=== PATIENT | male | born 1955 | race Caucasian/White ===

== ENCOUNTER 2023-08-05 15:20 | Emergency (ER) | payer MEDICARE ==
[2023-08-05 15:33] VITALS: RESP 20; TEMP 97.9
--- NOTE | 2023-08-05 15:34 | ERPHSYRPT ---
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 It is swollen and does not hurt anymore but it is swelling." Triage Nursing Assessment: Pt presented alert and oriented X 3, skin pwd. Pt left eyebrow swollen with swelling to left eyelid and tissue around lateral left eye. Physician History: This is a 67-year-old white male patient who is allergic to hornets and was working at home and unroofed a [employer] nest. He got bites to the area around his left eye. His eye was red and swollen nearly shut. However, the redness and swelling has improved. He did not use any medication to intervene. He has no shortness of breath. Timing/Duration: today Location: left eye Severity: mild Apparent Injury: no Associated Symptoms: redness (Left eye periorbital left side), eyelid swelling Visual Assistive Devices: Glasses Allergies/Adverse Reactions: hornet venom Allergy (Severe, Verified 08/05/23 15:33) Swelling Penicillins Allergy (Severe, Verified 08/05/23 15:33) Swelling Hx Tetanus, Diphtheria Vaccination/Date Given: No Hx Influenza Vaccination/Date Given: No Hx Pneumococcal Vaccination/Date Given: No Immunizations Up to Date: No Travel Risk - International Travel Have you traveled outside of the country in past 3 weeks: No - Emerging Infectious Disease Are you exhibiting symptoms associated with any current EIDs: No - Review of Systems Constitutional: No Symptoms Eyes: Other (Left periorbital redness and swelling. No direct eye globe injury redness or pain) Ears, Nose, & Throat: No Symptoms Respiratory: No Symptoms Cardiac: No Symptoms Abdominal/Gastrointestinal: No Symptoms Genitourinary Symptoms: No Symptoms Musculoskeletal: No Symptoms Skin: No Symptoms Neurological: No Symptoms Psychological: No Symptoms Endocrine: No Symptoms Hematologic/Lymphatic: No Symptoms Immunological/Allergic: No Symptoms All Other Systems: Reviewed and Negative - Past Medical History Pertinent Past Medical History: No - Past Surgical History Past Surgical History: Yes Other Surgical History: right neck - Social History Smoking Status: Current every day smoker How long have you smoked: years Exposure to second hand smoke: Yes Drug Use: marijuana - Nursing Vital Signs Nursing Vital Signs: Initial Vital Signs Temperature 97.9 F 08/05/23 15:28 Pulse Rate 73 08/05/23 15:28 Respiratory Rate 20 08/05/23 15:28 Blood Pressure 183/100 08/05/23 15:28 O2 Sat by Pulse Oximetry 94 L 08/05/23 15:28 Pain Scale Pain Intensity 0 - Physical Exam General Appearance: no apparent distress, alert, anxiety Eye Exam: bilateral eye: normal inspection, PERRL, EOMI Ears, Nose, Throat Exam: normal ENT inspection, moist mucous membranes Neck Exam: normal inspection, non-tender, supple, full range of motion Respiratory Exam: normal breath sounds, lungs clear, airway intact, No chest tenderness, No respiratory distress Cardiovascular Exam: regular rate/rhythm, normal heart sounds, normal peripheral pulses Gastrointestinal Exam: No tenderness Extremity Exam: normal inspection, normal range of motion, pelvis stable Neurologic: alert, oriented x 3, cooperative, hand ii cutter II-XII nml as tested, normal mood/affect, nml cerebellar function, sensation nml Skin Exam: warm, dry, other (Left periorbital redness and swelling present.) Lymphatic: No adenopathy SpO2 Interpretation: borderline oxygenation SpO2: 94 O2 Delivery: Room Air - Course Nursing assessment & vital signs reviewed: Yes Ordered Tests: Medication Summary Discontinued Medications Generic Name Dose Route Start Last Admin Trade Name Denysq PRN Reason Stop Dose Admin Diphenhydramine HCl 50 mg 08/05/23 16:34 Diphenhydramine Hcl 25 Mg Capsule PO 08/05/23 16:35 STAT ONE Famotidine 40 mg 08/05/23 16:34 Famotidine 20 Mg Tablet PO 08/05/23 16:35 STAT ONE Prednisone 20 mg 08/05/23 16:34 Prednisone 20 Mg Tablet PO 08/05/23 16:35 STAT ONE - Progress Progress: improved, re-examined Progress Note: 08/05/23 16:39 My medical decision making and the assignment of low complexity to this patient's medical issue today is based on review of the patient's past medical history, review the patient's medication list, review of patient drug allergy list, history presence and physical findings on examination. No laboratory radiographic studies are necessary in this patient's workup. We will provide the patient with oral prednisone, oral Benadryl and oral famotidine. Counseled pt/family regarding: diagnosis, need for follow-up Medical Desision Making - Diagnostic Testing Diagnostic test were ordered, analyzed, and reviewed by me: No - Risk of complications The pt has a mod risk of morbidity or mortality based on: Need for prescription drug management - Departure Departure Disposition: Home Clinical Impression: Allergic reaction Condition: Stable Critical Care Time: No Additional Instructions: Keep the site clean daily with soap and water. May alternate warm and cold compresses to site. Take Benadryl 25 mg orally 3 times a day for the next 5 days. Take your prescription medication as prescribed. Call your primary care provider tomorrow, 08/06/2023, to make arrangements for follow-up appointment next 5 to 7 days. Prescriptions: Prednisone 10 mg [Deltasone 10 mg] 10 mg PO TID #12 tablet Famotidine 20 mg [Pepcid 20 MG] 20 mg PO DAILY #5 tablet
[2023-08-05 16:24] VITALS: PULSE 69
[2023-08-05] MEDS ORDERED: DELTASONE 20 MG ONE (16:46)
[2023-08-05] MEDS ORDERED: BENADRYL 25 MG CAPSULE ONE (16:46)
[2023-08-05] MEDS ORDERED: Pepcid 20 MG ONE (16:46)
[2023-08-05] MEDS: BENADRYL 25 MG CAPSULE PO ONE (16:49)
[2023-08-05] MEDS: Pepcid 20 MG PO ONE (16:50)
[2023-08-05] MEDS: DELTASONE 20 MG PO ONE (16:50)
[2023-08-05 17:03] VITALS: BP 164/117; O2SAT 96
== END 2023-08-05 17:09 | disposition home or self-care (01) ==
LOC: ED 15:20
DX: T63.451A Toxic effect of venom of hornets, accidental (unintentional), initial encounter (principal); Z79.52 Long term (current) use of systemic steroids; Z72.0 Tobacco use
CPT/HCPCS: 99283; A9270-GY